=== PATIENT | female | born 1995 | race Caucasian/White ===

== ENCOUNTER 2017-05-15 13:25 | Emergency (ER) | payer SELFPAY ==
[2017-05-15 13:53] VITALS: BP 108/65
--- NOTE | 2017-05-15 14:13 | EDM.PDOC ---
ED HPI GENERAL MEDICAL PROBLEM - General Chief Complaint: Back Pain or Injury Stated Complaint: BACK PAIN Time Seen by Provider: 05/15/17 14:00 Source of Information: Reports: Patient, Old Records History Limitations: Reports: No Limitations - History of Present Illness INITIAL COMMENTS - FREE TEXT/NARRATIVE: 21 yo female recently moved to this area from [place] for work. Just before her move she fell and was seen in an area ER. There she was told she had a T5 compression fx. She was given Big Pool on 04/25, unknown quantity, that she is now out of. Not getting adequate relief with OTC analgesia. No local provider yet. Onset: Other (04/25/17) Onset Date: 04/25/17 Duration: Week(s):, Constant Location: Reports: Back Quality: Reports: Ache Severity: Moderate Improves with: Reports: Rest Worsens with: Reports: Movement Context: Reports: Trauma (fell down stairs) Associated Symptoms: Reports: No Other Symptoms Treatments [employer]IVES: Reports: Acetaminophen mid upper back Pain Score (Numeric/FACES): 8 - Related Data Allergies Allergy/AdvReac Type Severity Reaction Status Date / Time No Known Allergies Allergy Verified 05/15/17 13:53 Home Meds: Home Meds Acetaminophen [Tylenol] 650 mg PO Q6H PRN 05/15/17 [History] Ibuprofen 600 mg PO ASDIRECTED PRN 05/15/17 [History] ED ROS GENERAL - Review of Systems Review Of Systems: See Below Constitutional: Reports: No Symptoms HEENT: Reports: No Symptoms Respiratory: Reports: No Symptoms Cardiovascular: Reports: No Symptoms GI/Abdominal: Reports: No Symptoms : Reports: No Symptoms Musculoskeletal: Reports: Back Pain Skin: Reports: No Symptoms Neurological: Reports: No Symptoms ED EXAM, UPPER BACK/NECK PAIN - Physical Exam Exam: See Below Exam Limited By: No Limitations General Appearance: Alert, WD/WN, No Apparent Distress Ears Exam: Hearing Grossly Normal Nose Exam: Normal Inspection, Normal Mucousa, No Blood Throat/Mouth Exam: Normal Inspection, Normal Lips, Normal Voice, No Airway Compromise Head Exam: Atraumatic, Normocephalic Neck Exam: Normal Inspection Cardiovascular/Respiratory: Regular Rate, Rhythm, Normal Breath Sounds, No Respiratory Distress Back Exam: Normal Inspection, Vertebral Tenderness (At about T5). No: CVA Tenderness (R), CVA Tenderness (L) Extremities: Normal Inspection, Normal Range of Motion, Non-Tender Neurologic: No Motor/Sensory Deficits, Alert, Normal Mood/Affect, Oriented x 3 Psychiatric: Normal Affect, Normal Mood Skin Exam: Normal Color, Warm/Dry Course - Vital Signs Last Recorded V/S: Last Vital Signs Temp Pulse 102 H 05/15/17 13:25 Resp 18 05/15/17 13:25 BP 108/65 05/15/17 13:25 Pulse Ox 100 05/15/17 13:25 Departure - Departure Time of Disposition: 14:12 Disposition: Home, Self-Care 01 Condition: Good Clinical Impression: Compression fracture - Discharge Information Forms: ED Department Discharge
== END 2017-05-15 14:30 | disposition home or self-care (01) ==
LOC: FB.ED 13:25
DX: S22.059A Unspecified fracture of T5-T6 vertebra, initial encounter for closed fracture (principal); W19.XXXA Unspecified fall, initial encounter
CPT/HCPCS: 99282; 99283

== ENCOUNTER 2017-07-24 11:56 | Emergency (ER) | payer SELFPAY ==
[2017-07-24] MEDS ORDERED: Bupivacaine 0.5% 30 ML SDV INJECT ONE (11:57)
[2017-07-24] MEDS ORDERED: cefTRIAXone 1,000 MG VIAL IM ONE (12:42)
--- NOTE | 2017-07-24 12:46 | EDM.PDOC ---
ED HPI GENERAL MEDICAL PROBLEM - General Chief Complaint: General Stated Complaint: INFECTED PIERCING Time Seen by Provider: 07/24/17 12:08 Source of Information: Reports: Patient - History of Present Illness INITIAL COMMENTS - FREE TEXT/NARRATIVE: Pt was at the tatoo shop a piercing metal to be paced 7 m ago.This piercing metal at her left lower abdomen is now infecyted and the pt wants it have removed. Pt denies any other acuter medical issues. Onset: Unknown/Unsure Onset Date: 07/22/17 Onset Time: 18:00 Duration: Day(s): Location: Reports: Abdomen (wall) Quality: Reports: Burning, Dull Improves with: Reports: Rest Worsens with: Reports: Movement Context: Reports: Trauma Associated Symptoms: Reports: No Other Symptoms Left Abdomen Pain Score (Numeric/FACES): 6 - Related Data Allergies Allergy/AdvReac Type Severity Reaction Status Date / Time No Known Allergies Allergy Verified 07/24/17 12:06 Home Meds: Home Meds Acetaminophen [Tylenol] 650 mg PO Q6H PRN 05/15/17 [History] Ibuprofen 600 mg PO ASDIRECTED PRN 05/15/17 [History] Cephalexin [Keflex] 500 mg PO Q6HR #40 cap 07/24/17 [Rx] Past Medical History - Past Surgical History HEENT Surgical History: Reports: Oral Surgery Social & Family History - Tobacco Use Smoking Status *Q: Current Every Day Smoker Years of Tobacco use: 5 Packs/Tins Daily: 0.5 - Recreational Drug Use Recreational Drug Use: No ED ROS GENERAL - Review of Systems Review Of Systems: See Below Constitutional: Reports: No Symptoms HEENT: Reports: No Symptoms Respiratory: Reports: No Symptoms Cardiovascular: Reports: No Symptoms Endocrine: Reports: No Symptoms GI/Abdominal: Reports: No Symptoms : Reports: No Symptoms Musculoskeletal: Reports: No Symptoms Skin: Reports: No Symptoms Neurological: Reports: No Symptoms Psychiatric: Reports: No Symptoms Hematologic/Lymphatic: Reports: No Symptoms Immunologic: Reports: No Symptoms ED EXAM, GENERAL - Physical Exam Exam: See Below Exam Limited By: No Limitations General Appearance: Alert, WD/WN, No Apparent Distress Eye Exam: Bilateral Eye: Normal Inspection Ears: Normal External Exam, Normal Canal Ear Exam: Bilateral Ear: Auricle Normal Nose: Normal Inspection, Normal Mucosa Throat/Mouth: Normal Inspection Head: Atraumatic, Normocephalic Neck: Normal Inspection Respiratory/Chest: No Respiratory Distress, Lungs Clear, Normal Breath Sounds Cardiovascular: Normal Peripheral Pulses, Regular Rate, Rhythm Peripheral Pulses: 1+: Femoral (L), Femoral (R) GI/Abdominal: Normal Bowel Sounds (Female) Exam: Deferred Rectal (Female) Exam: Deferred Back Exam: Normal Inspection, Full Range of Motion Extremities: Normal Inspection, Normal Range of Motion, Non-Tender Neurological: Alert, Oriented, CN II-XII Intact, Normal Cognition, Normal Gait Psychiatric: Normal Affect, Normal Mood Skin Exam: Rash (left lower abd. wall with loose Piercing metal ) Lymphatic: No Adenopathy ED GENERAL MEDICAL PROCEDURES - Additional/Other Procedure(s) Other (Free Text) Procedure(s): Piercing metal removed left lower abd. wall: Cleaned area with Betadiene, local anesthetics Marcaine 0.5% was -2cc- were injected. small incision using a #11 scalpet was used, Piercing metal was removed. no complication Course - Vital Signs Text/Narrative:: Pt was at the [employer] shop a piercing metal to be paced 7 m ago.This piercing metal at her left lower abdomen is now infecyted and the pt wants it have removed. Pt denies any other acuter medical issues. TD UTD PE: FB (piercing metal) Left lower abdominal wall, infected, no bleed. Procedure: Please see note above Impression: Piercing mnateial (metal) left lower abd. removed Tx: Rocephin, Reexam: Improved Plan: D/C with instructions Last Recorded V/S: Last Vital Signs Temp 37.1 C 07/24/17 12:08 Pulse 75 07/24/17 12:08 Resp 18 07/24/17 12:08 BP 111/56 L 07/24/17 12:08 Pulse Ox 100 07/24/17 12:08 - Orders/Labs/Meds Meds: Medications Discontinued Medications Generic Name Dose Route Start Last Admin Trade Name Freq PRN Reason Stop Dose Admin Ceftriaxone Sodium 1,000 mg 07/24/17 12:42 07/24/17 12:57 Rocephin IM 07/24/17 12:43 1,000 mg ONETIME ONE Administration Departure - Departure Time of Disposition: 12:47 Disposition: Home, Self-Care 01 Condition: Good Clinical Impression: Foreign body - Discharge Information Prescriptions: Cephalexin [Keflex] 500 mg PO Q6HR #40 cap Instructions: Wound Infection, [id number] Referrals: PCP,None [Primary Care Provider] - Forms: ED Department Discharge, ED Return to Work/School Form Additional Instructions: please keep the wound dry and clean, please take Abx as recommended, please f/u with your PMD for wound check. Please come back to the ed if your symptoms get worse acutely
[2017-07-24 13:25] VITALS: BP 103/62
== END 2017-07-24 13:10 | disposition home or self-care (01) ==
LOC: FB.ED 11:56
DX: S30.851A Superficial foreign body of abdominal wall, initial encounter (principal); W26.8XXA Contact with other sharp object(s), not elsewhere classified, initial encounter
CPT/HCPCS: 10120; 99284; J0696; 10060; 99283